=== PATIENT | male | born 2000 | race Two or more races ===

== ENCOUNTER → 2020-08-09 | Day surgery (SDC) | payer BC ==
[~2020-08-09] VITALS: Ht 180.3 cm; Wt 93.4 kg
[2020-08-09] VITALS (11 sets, daily range): BP systolic 106–140; BP diastolic 56–100
[~2020-08-09] MED LIST: ACCUTANE PO; Acetaminophen (Non formulary) 100 ML IV ONE; Atropine Sulfate 0.4mg/ml inj IVP PRN; Bacitracin Oint 15gm Tube TOPIC ONE; Betadine 10% Oint 30gm TOPIC ONE; Bupivacaine 0.5% Inj 30 ml vial INJ ONE; DiphenhydrAMINE 50mg/ml Inj IVP PRN; HYDROcodone/Acetamin 5/325 tab ORAL PRN; HYDROcodone/Acetamin 7.5/325 tab ORAL PRN; Hydromorphone 0.5mg/0.5ml inj IVP PRN; KEPPRA1000 MG ORAL; Kenalog-10 5ml Inj ONE; Ketorolac 30mg Inj IV PRN; LORazepam Inj 2mg/ml 1ml IV PRN; LR 1000ml 1,000 ML IVLG SCH; LR 1000ml ONE; Labetalol 5mg/ml 20ml vial IV PRN; Lidocaine 1% MPF 10mg/ml 5ml ONE; Lidocaine 1% Plain 30 ml INJ ONE; Meperidine 25mg/1ml Inj (FOR RIGORS ONLY) IV PRN; Metoclopramide 10mg/2ml Inj IVP PRN; Midazolam 2mg/2ml Inj IVP PRN; NS Irrig 1000ml IRRIG ONE; Sodium Chloride 10ml vial INJ ONE; Sterile Water Irrig 1000ml IRRIG ONE; fentaNYL 100 mcg/2 mL IV ONE; fentaNYL 100 mcg/2 mL IV PRN; oxyCODONE HCL/Acetaminophen 5/325mg ORAL PRN
--- NOTE | 2020-08-09 07:30 | Anethesia Preoperative Eval ---
Anesthesia Pre-op PMH/ROS General Date of Evaluation: Aug 09, 2020 Time of Evaluation: 07:19 Anesthesiologist: Tucker ASA Score: ASA 2 Mallampati Score Class I : Soft palate, uvula, fauces, pillars visible Class II: Soft palate, uvula, fauces visible Class III: Soft palate, base of uvula visible Class IV: Only hard plate visible Mallampati Classification: Class II Surgeon: Gene Diagnosis: Hallux Valgus L Foot Surgical Procedure: Bunionectomy L Foot Anesthesia History: none Family History: no anesthesia problems Allergies: Coded Allergies: AMOXICILLIN (Verified Allergy, Severe, SWELLING, REDNESS, 05/25/20) Uncoded Allergies: BEETS (Allergy, Severe, SWELLING, REDNESS, 05/25/20) Medications: see eMAR Patient NPO?: Yes Past Medical History Neurologic/Psychiatric: Reports: other - Hx Seizures Other: obesity - BMI 30 Anesthesia Pre-op Phys. Exam Physician Exam Last Vital Signs Date Time Temp Pulse Resp B/P (MAP) Pulse Ox O2 Delivery O2 Flow Rate FiO2 08/09/20 06:11 97.3 73 18 109/64 97 Room Air Constitutional: NAD Neurologic: CN 2-12 intact Cardiovascular: RRR Respiratory: CTA Gastrointestinal: S/NT/ND Airway Exam Mallampati Score: Class II MO: full ROM: full Teeth: missing, intact Anesthesia Pre-op A/P Risk Assessment & Plan Assessment: ASA 2 Plan: GA, SED Status Change Before Surgery: No Pre-Antibiotics Dru Gram Ancef IV Given Within 1 Hr of Incision: Yes Time Given: 07:46 Jf Ceballos MD Aug 09, 2020 07:30
--- NOTE | 2020-08-09 07:38 | Pre-Procedure Note/Attestation ---
Pre-Procedure Note/Attestation Complete Prior to Procedure Planned Procedure: left Procedure Narrative: Bunionectomy osteotomy left foot Indications for Procedure Pre-Operative Diagnosis: Hallux Valgus Attestation I attest that I discussed the nature of the procedure; its benefits; risks and complications; and alternatives (and the risks and benefits of such alternatives), prior to the procedure, with the patient (or the patient's legal district sales representative). I attest that, if there was a reasonable possibility of needing a blood transfusion, the patient (or the patient's legal district sales representative) was given the [facility] standardized written summary, pursuant to the [place] Blood Safety Act ([place] Health and Safety Code # 1645, as amended). I attest that I re-evaluated the patient just prior to the surgery and that there has been no change in the patient's H&P, except as documented below: Gilbert Mills DPM Aug 09, 2020 07:38
--- NOTE | 2020-08-09 07:40 | Immediate Post-Op Evaluation ---
Immediate Post-Op Evalulation Immediate Post-Op Evalulation Procedure: Bunionectomy L Foot Date of Evaluation: Aug 09, 2020 Time of Evaluation: 09:25 IV Fluids: 700 LR Blood Products: 0 Estimated Blood Loss: 7 Urinary Output: 0 Blood Pressure Systolic: 106 Blood Pressure Diastolic: 60 Pulse Rate: 64 Respiratory Rate: 16 O2 Sat by Pulse Oximetry: 98 Temperature (Fahrenheit): 97.7 Pain Score (1-10): 2 Nausea: No Vomiting: No Complications 0 Patient Status: awake, reacts, patent, none Hydration Status: adequate Dru Gram Ancef IV Given Within 1 Hr of Incision: Yes Time Given: 07:46 Jf Ceballos MD Aug 09, 2020 07:40
--- NOTE | 2020-08-09 07:41 | 48 Hour Post Anesthesia Eval ---
Post Anesthesia Evaluation Procedure: Bunionectomy L Foot Date of Evaluation: Aug 09, 2020 Time of Evaluation: 11:34 Blood Pressure Systolic: 108 0: 67 Pulse Rate: 65 Respiratory Rate: 18 Temperature (Fahrenheit): 98 O2 Sat by Pulse Oximetry: 98 Airway: patent Nausea: No Vomiting: No Pain Intensity: 2 Hydration Status: adequate Cardiopulmonary Status: Stable Mental Status/LOC: patient returned to baseline Follow-up Care/Observations: 0 Post-Anesthesia Complications: 0 Follow-up care needed: ready to discharge Jf Ceballos MD Aug 09, 2020 07:41
--- NOTE | 2020-08-09 09:12 | Brief Operative Note ---
Immediate Post Operative Note Operative Note Pre-op Diagnosis: Hallux Valgus Procedure: Bunionectomy osteotomy left foot Post-op Diagnosis: same as pre-op Surgeon: Gene Anesthesiologist: Julito Anesthesia: MAC Specimen: yes Complications: none Condition: stable Fluids: 1000 Estimated Blood Loss: none Drains: none Implant(s) used?: Yes Gilbert Mills DPM Aug 09, 2020 09:12
--- NOTE | 2020-08-09 11:44 | Operative Note - Dictated ---
DATE OF OPERATION: 08/09/2020 SURGEON: Gilbert Mills DPM. ANESTHESIOLOGIST: Jf Ceballos MD. ANESTHESIA: Local standby. PREOPERATIVE DIAGNOSIS: Hallux abductovalgus with bunion deformity, left foot. POSTOPERATIVE DIAGNOSIS: Hallux abductovalgus with bunion deformity, left foot. PROCEDURES PERFORMED: 1. Chevron type bunionectomy with screw fixation, left foot. 2. Raphael osteotomy with staple fixation, left hallux. DESCRIPTION OF THE OPERATION: The patient was brought to the operating room and was placed on the operating room table in the supine position. Intravenous sedation was administered by the anesthesiologist. Local anesthesia consisting of 0.5% Marcaine plain total of 15 mL was administered to the left foot. An ankle tourniquet was applied to the left lower extremity. The foot was prepped and draped in usual sterile manner. An Esmarch bandage was utilized to exsanguinate the blood and the left ankle tourniquet was inflated to 250 mmHg. Attention was directed to the left hallux where an approximately 6 centimeter dorsal linear skin incision was centered over the first metatarsophalangeal joint. The incision was deepened utilizing sharp and blunt dissection with care being taken to cauterize and ligate all bleeders. At the level of the capsule, a linear capsulotomy was performed. The capsule was reflected medially and laterally and the head of the first metatarsal was exposed. Utilizing a sagittal saw, the medial eminence was resected in total. The remaining bone was rasped smooth. The wound was copiously flushed utilizing sterile saline. At this point, a 67-blade was utilized to perform a lateral release. Attention was then directed to the first metatarsal head. Utilizing a sagittal saw, a through and through V-type osteotomy with the apex distal and the arms protruding proximally was performed. The capital fragment was transposed and fixated onto the metatarsal shaft utilizing 2.5, 22 headless screw which was driven from proximal dorsal to plantar distal. At this point, a sagittal saw was utilized to resect the overhang. The remaining bone was rasped smooth. The wound was copiously flushed utilizing sterile saline. Attention was then directed to the proximal phalanx. The soft tissue capsule tissue and periosteum were reflected plantar and dorsal. Utilizing a sagittal saw, medial wedge was resected mid shaft leaving the lateral cortex intact. The osteotomy was reduced. Two drill bit holes were inserted just proximal and distal to the osteotomy and an 8 x 8 x 8 mm millimeter staple was then utilized to fixate the osteotomy. The wound was copiously flushed utilizing sterile saline. The capsule was then reapproximated utilizing 3-0 Vicryl in a simple interrupted type stitch. The subcutaneous tissue was then reapproximated utilizing 4-0 Vicryl in an buried knot type stitch. The skin was then reapproximated utilizing 4-0 nylon in a simple interrupted type stitch. The wound was dressed utilizing an Adaptic 4 x 4 gauze, and 3 inch Chip. Left ankle tourniquet was deflated and vascular supply was noted to all digits left foot. The patient tolerated the procedure well and left the operating room to recovery room with all vital signs stable. Ben BenjaminPRichard DR: Serge JOB#: [id number] CC:
--- NOTE | 2020-08-09 16:14 | History and Physical Report ---
DATE OF ADMISSION: 08/09/2020 PODIATRIC HISTORY AND PHYSICAL HISTORY OF PRESENT ILLNESS: This is a 20-year-old, white male that is admitted today for an outpatient bunionectomy of his left foot. The patient has been under my care for the past several months. He underwent right foot bunionectomy by me 3 months ago. He is eager to get his left bunion operated on. He has been suffering from pain from his left foot which was improved with shoe-gear modification and padding. He also failed orthotics therapy. PAST MEDICAL HISTORY: Remarkable for seizures and autism disorder. MEDICATIONS: Keppra, lorazepam, and Accutane . ALLERGIES: Amoxicillin. PODIATRIC PHYSICAL EXAMINATION: VASCULAR STATUS: Dorsalis pedis and posterior tibial arteries are equally palpable measuring 3 or 4 bilaterally. Capillary filling time is less than 3 seconds to all digits bilaterally. No varicosities are noted bilaterally. Homans sign is negative. NEUROLOGICAL: Reveals intact reflexes, Achilles and patellar measuring 2/4 bilaterally. Sensation, proprioception, and vibrations are all intact bilateral lower extremity. Babinski is negative. Clonus is absent bilaterally. MUSCULOSKELETAL: Reveals a stage III hallux abductovalgus with bunion deformity, left foot. The hallux is under riding the second digit left foot. Joint range of motion is full and without crepitation, first metatarsophalangeal joint bilaterally. There are semi-reducible hammertoe deformities of digits 2 through 5 bilaterally. No other skeletal deformities are noted. All other joints range of motions are full and pain free bilaterally. DERMATOLOGICAL: Scar right hallux from prior bunionectomy. No other lesions or ulcerations are noted bilaterally. All nails are present and healthy bilaterally. ASSESSMENT: Hallux abductovalgus with bunion deformity, left foot. PLAN: The patient is admitted today for bunionectomy and osteotomy of the left foot. Risks complications and alternatives were discussed with the patient and his mother. Postoperative medication was dispensed. The postoperative instructions were given. The patient elected to proceed with surgery. Gilbert Mills D.P.M. DR: Serge JOB#: [id number] CC:
--- NOTE | 2020-08-10 11:58 | Diagnostic Imaging Report ---
Indication: Foot pain. Postop Technique: 3 views of the left foot Comparison: None Findings: The patient is status post recent bunionectomy. There is a fixation nail/screw noted reducing the first metatarsal osteotomy. There is a surgical staple seen fixating the proximal phalangeal osteotomy. Gas in soft tissues compatible with postoperative acquisition of the radiograph. Otherwise no evidence of acute fracture or additional radiopaque foreign body. IMPRESSION: Postoperative changes as above.
== END | disposition home or self-care (01) ==
LOC: SUR 05:36
DX: M20.12 Hallux valgus (acquired), left foot (principal); G40.909 Epilepsy, unspecified, not intractable, without status epilepticus; F84.0 Autistic disorder; Z79.899 Other long term (current) drug therapy; Z88.1 Allergy status to other antibiotic agents; E66.9 Obesity, unspecified; Z91.018 Allergy to other foods; Z68.28 Body mass index [BMI] 28.0-28.9, adult
CPT/HCPCS: 28299; 73630; J0131; J0690; J1100; J1885; J2001; J2250; J2405; J2704; J3010; J3301; J3490; J7120; U0004